=== PATIENT | female | born 1990 | race Caucasian/White ===

== ENCOUNTER 2017-06-07 13:43 | Emergency (ER) | payer MEDICAID ==
[2017-06-07 14:09] VITALS: RESP 16; TEMP 98.2
[2017-06-07] MEDS ORDERED: NS 1,000 ML IV ONE ×2 (14:12→15:23)
[2017-06-07] MEDS ORDERED: ONDANSETRON 4 MG/2 ML VIAL IVP ONE (14:12)
[2017-06-07] MEDS ORDERED: ONDANSETRON 4MG PREPACK#2 BTL TAKEHOME ONE (14:14)
--- NOTE | 2017-06-07 14:14 | EDPHY ---
H & P Stated Complaint: Pt. arrived from [place] last ayaka,diarrhea x3 and 1 episode of vomiting,chills, Time Seen by Provider: 06/07/17 13:46 HPI/ROS: Chief Complaint: Diarrhea HPI: 27-year-old woman visiting from [place] woke up this morning and began having diarrhea. She has had 3 episodes of diarrhea since 7 o'clock this morning, progressing from loose stools to profuse watery diarrhea. There has not been any blood or dark black. H has had some abdominal cramping which is relieved with an episode of diarrhea. Has had some chills but no fevers. Vomited once. No hematemesis. Has not had any recent antibiotic use. No recent international travel. No chest pain or shortness of breath. Has had her appendix out in 2008. ROS: 10 point Review of Systems is negative except as noted in the HPI. PMH: Appendectomy Medications: None Allergies: Penicillin Social History: No smoking, occasional alcohol, occasional marijuana Family History: non-contributory Physical Exam: Gen: Awake, Alert, No Distress HEENT: Nose: no rhinorrhea Eyes: PERRLA, EOMI Mouth: Moist mucosa Neck: Supple, no JVD Chest: nontender, lungs clear to auscultation Heart: S1, S2 normal, no murmur Abd: Soft, non-tender, no guarding Back: no CVA tenderness, no midline tenderness Ext: no edema, non-tender Skin: no rash Neuro: CN II-XII intact, Sensation grossly intact, Strength 5/5 in bilateral upper and lower extremities - Personal History LMP (Females 10-55): 15-21 Days Ago - Medical/Surgical History Other PMH: Med hx-none. Surg-appy Constitutional: Initial Vital Signs Temperature (C) 36.8 C 06/07/17 13:55 Heart Rate 102 H 06/07/17 13:55 Respiratory Rate 16 06/07/17 13:55 Blood Pressure 127/76 H 06/07/17 13:55 O2 Sat (%) 94 06/07/17 13:55 O2 Delivery Mode Room Air Allergies/Adverse Reactions: Penicillins Allergy (Verified 06/07/17 14:06) Home Medications: Medication Instructions Recorded NK [No Known Home Meds] 06/07/17 Medical Decision Making ED Course/Re-evaluation: 27-year-old with a diarrheal illness, started today, no recent travel, no franci blood, will give IV fluids, antiemetics, and reassess. Patient has some fluid after IV fluids, ondansetron and loperamide. She is tolerating p.o.. Will discharge with follow-up with primary care physician, return for worsening symptoms. - Data Points Medications Given: Discontinued Medications Sodium Chloride (Ns) 1,000 mls @ 0 mls/hr IV ONCE ONE PRN Reason: Wide Open Stop: 06/07/17 14:13 Last Admin: 06/07/17 14:18 Dose: 1,000 mls Loperamide HCl (Imodium) 2 mg PO EDNOW ONE Stop: 06/07/17 14:41 Last Admin: 06/07/17 14:51 Dose: 2 mg Ondansetron HCl (Zofran) 4 mg IVP EDNOW ONE Stop: 06/07/17 14:13 Last Admin: 06/07/17 14:20 Dose: 4 mg Departure - Departure Disposition: Home, Routine, Self-Care Clinical Impression: Diarrhea, Dehydration Condition: Good Instructions: Acute Diarrhea (ED) Additional Instructions: You may take Imodium [id number] per label instructions as needed for diarrhea. Make sure to drink plenty of fluids. You may take ondansetron as needed for nausea. Return emergency depart for increasing abdominal pain, uncontrolled nausea or vomiting, inability to tolerate oral fluids, fevers, chills, or any other concerns. Follow up with primary care physician in 3-4 days if symptoms do not improve. Referrals: NONE *PRIMARY CARE P,. [Primary Care Provider] - As per Instructions
[2017-06-07] MEDS ORDERED: LOPERAMIDE HCL 2 MG CAP PO ONE (14:40)
[2017-06-07 16:34] VITALS: BP 121/72; PULSE 95; O2SAT 96
== END 2017-06-07 16:15 | disposition home or self-care (01) ==
LOC: CED 13:43
DX: E86.0 Dehydration (principal)
CPT/HCPCS: 96374; J2405